=== PATIENT | female | born 1985 | race African-American/Black ===

== ENCOUNTER 2016-09-09 07:03 | Emergency (ER) | payer SELFPAY ==
[2016-09-09 07:48] LABS: BILIRUBIN NEGATIVE (NEGATIVE); BLOOD TRACE-INTACT Ery/uL (NEGATIVE); CLARITY CLEAR (CLEAR); COLOR YELLOW (YELLOW); GLUCOSE (U) NORMAL (NORMAL); KETONE (U) NEGATIVE (NEGATIVE); LEUKOCYTES NEGATIVE Leu/uL (NEGATIVE); NITRITE NEGATIVE (NEGATIVE); PROTEIN TRACE (LOW) mg/dL (NEGATIVE); SPECIFIC GRAVITY 1.025 (1.001-1.030); UROBILINOGEN 0.2 mg/dL (0.2-1.0); pH 5.5 (5.0-9.0)
[2016-09-09 07:51] LABS: BASOPHIL 0.8 % (0-2); EOSINOPHIL 0.4 % (0-5); HCT 41.6 % (37.0-47.0); HGB 14.5 g/dl (12.5-16.0); LYMPHOCYTE 22.3 % (15-48); MCHC 34.9 g/dL (32.0-36.0); MCV 97.7 fL (78.0-100.0); MONOCYTE 5.4 % (0-12); MPV 8.9 fL (6.0-9.5); NEUTROPHIL 71.1 % (41-80); PLT 359 K/uL (150-400); RBC 4.26 M/uL (4.20-5.40); RDW 14.5 % (11.5-14.0); WBC 15.5 K/uL (4.0-10.5)
[2016-09-09 08:01] LABS: AMPHETAMINES NEGATIVE (NEGATIVE); BENZODIAZEPINES NEGATIVE (NEGATIVE); COCAINE POSITIVE (NEGATIVE); MARIJUANA (THC) POSITIVE (NEGATIVE)
[2016-09-09 08:02] LABS: ALBUMIN 4.9 g/dL (3.5-5.0); BARBITURATES NEGATIVE (NEGATIVE); BILIRUBIN - TOTAL 0.3 mg/dL (0.1-1.0); CREATININE 0.6 mg/dL (0.5-1.0); GLOBULIN (CALCULATION) 2.8 g/dL (2.2-4.2); METHADONE NEGATIVE (NEGATIVE); POTASSIUM 4.2 mmol/L (3.5-5.1); TOTAL PROTEIN 7.7 g/dL (6.4-8.3); TRICYCLIC ANTIDEPRESSANT NEGATIVE (NEGATIVE)
== END 2016-09-09 09:09 | disposition left against medical advice (07) ==
LOC: FER 07:03
PROVIDERS: Emergency Medicine
DX: S70.01XA Contusion of right hip, initial encounter (principal); F10.129 Alcohol abuse with intoxication, unspecified; F12.10 Cannabis abuse, uncomplicated; F14.10 Cocaine abuse, uncomplicated; F17.210 Nicotine dependence, cigarettes, uncomplicated; Y90.8 Blood alcohol level of 240 mg/100 ml or more; V89.2XXA Person injured in unspecified motor-vehicle accident, traffic, initial encounter; Y92.410 Unspecified street and highway as the place of occurrence of the external cause
CPT/HCPCS: 36415; 70450; 71010; 72100; 72125; 72170; 73552; 80053; 80305; 81001; 85025; G0480